=== PATIENT | female | born 1950 | race Hispanic/Latino ===

== ENCOUNTER 2018-06-25 13:47 | Emergency (ER) | payer MEDICARE, OTHER ==
[2018-06-25 14:48] VITALS: BMI 32.1
[2018-06-25 15:25] LABS: BASO % 0.5 % (0.0-2.0); EOS % 0.2 % (0.0-4.0); HEMOGLOBIN 12.4 g/dL (11.0-16.0); LYMPH # 1.3 K/uL (1.0-4.3); LYMPH % 20.6 % (20.0-40.0); MEAN CELL VOLUME 78.1 fL (81.0-99.0); MEAN CORPUSCULAR HGB CONC 33.2 g/dL (33.0-37.0); MONO # 0.4 K/uL (0.0-0.8); MONO % 5.9 % (0.0-10.0); NEUT # 4.6 K/uL (1.8-7.0); NEUT % 72.8 % (50.0-75.0); RBC 4.77 Mil/uL (3.80-5.20); RED CELL DISTRIBUTION WIDTH 15.6 % (11.5-14.5); WHITE BLOOD COUNT 6.3 K/uL (4.8-10.8)
[2018-06-25 15:32] LABS: SQUAMOUS EPITHIAL 5 /hpf (0-5); URINE BACTERIA RARE (<OCC); URINE BILIRUBIN NEGATIVE (NEGATIVE); URINE BLOOD 1+ (NEGATIVE); URINE CLARITY Hazy (Clear); URINE COLOR Yellow (YELLOW); URINE GLUCOSE (UA) NORMAL (Normal); URINE LEUKOCYTE ESTERASE 3+ Leu/uL (Negative); URINE PROTEIN NEGATIVE (NEGATIVE); URINE UROBILINOGEN NORMAL mg/dL (0.2-1.0)
[2018-06-25 15:50] LABS: ALB/GLOB RATIO 2.1 (1.0-2.1); ALBUMIN 5.1 g/dL (3.5-5.0); ALT/SGPT 11 U/L (9-52); AST/SGOT 31 U/L (14-36); BLOOD UREA NITROGEN 10 mg/dL (7-17); CALCIUM 9.6 mg/dl (8.6-10.4); GFR NON-AFRICAN AMERICAN > 60
[2018-06-25 16:01] LABS: BARBITURATES, UR NEGATIVE (NEGATIVE); BENZODIAZEPINES, UR NEGATIVE (NEGATIVE); OPIATES, UR NEGATIVE (NEGATIVE); PHENCYCLIDINE, UR NEGATIVE (NEGATIVE)
--- NOTE | 2018-06-25 16:47 | C.PDOC ---
History Of Present Illness 68 y/o female presents to the ER complaining of depression. Patient states that she was recently admitted for depression in [facility] and she was discharged today. Patient denies having suicidal ideation, homicidal ideation and active physical complaints. Time Seen by Provider: 06/25/18 14:42 Chief Complaint (Nursing): Psychiatric Evaluation History Per: Patient History/Exam Limitations: no limitations Onset/Duration Of Symptoms: Days Current Symptoms Are (Timing): Still Present Severity: Moderate Past Medical History Reviewed: Historical Data, Nursing Documentation, Vital Signs Vital Signs: Last Vital Signs Temp 98.8 F 06/25/18 14:34 Pulse 112 H 06/25/18 14:34 Resp 18 06/25/18 14:34 BP 131/81 06/25/18 14:34 Pulse Ox 94 L 06/25/18 14:34 - Medical History PMH: Depression, Pneumonia Denies: Anxiety, Bipolar Disorder, Diabetes, Hepatitis, HIV, HTN, Paranoia, Post Traumatic Stress Disorder, Schizophrenia, Seizures, Sexually Transmitted Disease Surgical History: Denies: Pacemaker - [facility] Procedures CLOSURE SKIN & SUBCUTANEOUS NEC (05/31/14) DPT ADMINISTRATION (05/31/14) INJECT/INFUSE NEC (12/01/13) PSYCHIAT DRUG THERAP NEC (10/26/06) Family History: States: No Known Family Hx - Social History Hx Alcohol Use: No Hx Substance Use: No - Immunization History Hx Tetanus Toxoid Vaccination: No Hx Influenza Vaccination: No Hx Pneumococcal Vaccination: No Review Of Systems Except As Marked, All Systems Reviewed And Found Negative. Constitutional: Negative for: Fever, Chills Cardiovascular: Negative for: Chest Pain, Palpitations Respiratory: Negative for: Cough, Shortness of Breath Gastrointestinal: Negative for: Nausea, Vomiting, Abdominal Pain Genitourinary: Negative for: Dysuria, Frequency Neurological: Negative for: Weakness, Headache, Dizziness Psych: Positive for: Depression. Negative for: Suicidal ideation Physical Exam - Physical Exam Appears: Non-toxic, No Acute Distress Skin: Normal Color, Warm, Dry Head: Atraumatic, Normacephalic Eye(s): bilateral: Normal Inspection Nose: Normal Oral Mucosa: Moist Neck: Supple Chest: Symmetrical Cardiovascular: Rhythm Regular Respiratory: Normal Breath Sounds, No Rales, No Rhonchi, No Wheezing Gastrointestinal/Abdominal: Normal Exam, Soft, No Tenderness, No Guarding, No Rebound Neurological/Psych: Oriented x3, Normal Speech ED Course And Treatment - Laboratory Results Result Diagrams: 06/25/18 15:20 06/25/18 15:20 Lab Results: Total Bilirubin 0.6 mg/dL (0.2-1.3) 06/25/18 15:20 AST 31 U/L (14-36) 06/25/18 15:20 ALT 11 U/L (9-52) 06/25/18 15:20 Alkaline Phosphatase 99 U/L (38-126) 06/25/18 15:20 Total Protein 7.5 g/dL (6.3-8.3) 06/25/18 15:20 Albumin 5.1 g/dL (3.5-5.0) H 06/25/18 15:20 Globulin 2.4 gm/dL (2.2-3.9) 06/25/18 15:20 Albumin/Globulin Ratio 2.1 (1.0-2.1) 06/25/18 15:20 Urine Color Yellow (YELLOW) 06/25/18 15:20 Urine Clarity Hazy (Clear) 06/25/18 15:20 Urine pH 7.0 (5.0-8.0) 06/25/18 15:20 Ur Specific [place] 1.004 (1.003-1.030) 06/25/18 15:20 Urine Protein Negative mg/dL (NEGATIVE) 06/25/18 15:20 Urine Glucose (UA) Normal mg/dL (Normal) 06/25/18 15:20 Urine Ketones Negative mg/dL (NEGATIVE) 06/25/18 15:20 Urine Blood 1+ (NEGATIVE) H 06/25/18 15:20 Urine Nitrate Negative (NEGATIVE) 06/25/18 15:20 Urine Bilirubin Negative (NEGATIVE) 06/25/18 15:20 Urine Urobilinogen Normal mg/dL (0.2-1.0) 06/25/18 15:20 Ur Leukocyte Esterase 3+ Iman/uL (Negative) H 06/25/18 15:20 Urine WBC (Auto) 19 /hpf (0-5) H 06/25/18 15:20 Urine RBC (Auto) 2 /hpf (0-3) 06/25/18 15:20 Ur Squamous Epith Cells 5 /hpf (0-5) 06/25/18 15:20 Urine Bacteria Rare (<OCC) 06/25/18 15:20 ECG: Interpreted By Me, Viewed By Me ECG Rhythm: Sinus Rhythm ECG Interpretation: Normal Interpretation Of ECG: Low voltage. Rate From EC O2 Sat by Pulse Oximetry: 94 (RA) Pulse Ox Interpretation: Normal - Other Rad CXR X-Ray: Interpreted by Me, Viewed By Me Interpretation: Accession No. : [id number]. Patient Name / ID : TERESA MONTE / [id number]. Exam Date : 06/25/2018 17:33:36 ( Approved ). Study Comment : Sex / Age : F / 68Y. Creator : Apoorva Erickson MD. Dictator : Apoorva Erickson MD. Kitchen And Bath Designer : Salvage Machine Operator : Apoorva Erickson MD. Approver2 : Report Date : 06/25/2018 17:49:38. My Comment : . Date of service: 06/25/2018. HISTORY: pre admission. COMPARISON: No prior. FINDINGS: LUNGS: The lungs are well inflated and clear. PLEURA: No pleural effusions or pneumothorax. CARDIOVASCULAR: The heart is normal in size. No aortic atherosclerotic calcifications present. OSSEOUS STRUCTURES: Within normal limits for the patient's age. VISUALIZED UPPER ABDOMEN: Normal. OTHER FINDINGS: None. IMPRESSION: No active pulmonary disease. Medical Decision Making Medical Decision Making: Plan: --Labs --UA --ECG --CXR CXR w/nad, UA w/LE and wbc, neg nitrate, pt w/o sx ucx ordered. Updates: 1718 CRISIS called [facility]. They were informed that patient was admitted in [facility] for 5 days and she was discharge yesterday.Patient tried to register again today at [facility] and she was discharged. 1755:Medically cleared for psychiatric admission. Per crisis will be transferred to [facility] accepted to Dr. Soni Pending acceptance by psych. 19:15 Patient signed out to Dr. Spencer pending acceptance to [facility]. Disposition - Disposition Disposition Time: 19:16 Condition: STABLE Forms: [facility] (Korean) - Clinical Impression Clinical Impression: Depression - Scribe Statement The provider has reviewed the documentation as recorded by the Scribe Tere Gibson Provider Attestation: All medical record entries made by the Scribe were at my direction and personally dictated by me. I have reviewed the chart and agree that the record accurately reflects my personal performance of the history, physical exam, medical decision making, and the department course for this patient. I have also personally directed, reviewed, and agree with the discharge instructions and disposition.
[2018-06-25] MEDS ORDERED: Sodium Chloride 0.9% 1,000 ML IV ONE (17:17)
--- NOTE | 2018-06-25 17:53 | RAD ---
Date of service: 06/25/2018 HISTORY: pre admission COMPARISON: No prior. FINDINGS: LUNGS: The lungs are well inflated and clear. PLEURA: No pleural effusions or pneumothorax. CARDIOVASCULAR: The heart is normal in size. No aortic atherosclerotic calcifications present. OSSEOUS STRUCTURES: Within normal limits for the patient's age. VISUALIZED UPPER ABDOMEN: Normal. OTHER FINDINGS: None. IMPRESSION: No active pulmonary disease.
[2018-06-25] MEDS ORDERED: Sodium Chloride 0.9% 1,000 ML ONE (17:56)
[2018-06-25 21:25] VITALS: O2SAT 98
[2018-06-25 23:59] VITALS: BP 128/80; PULSE 86; RESP 18; TEMP 97.8
== END 2018-06-26 00:16 | disposition designated cancer center or children's hospital (05) ==
LOC: C.ER 13:47
DX: F32.9 Major depressive disorder, single episode, unspecified (principal); N39.0 Urinary tract infection, site not specified
CPT/HCPCS: 71045; 80053; 81001; 83735; 84100; 85025; 87086; 96360; 99285; G0480; J7030